=== PATIENT | male | born 1980 | race African-American/Black ===

== ENCOUNTER 2023-02-03 23:50 | Emergency (ER) | payer MEDICAID ==
[~2023-02-03] VITALS: Ht 182.9 cm; Wt 121.5 kg
[2023-02-03 23:59] VITALS: O2SAT 100
[2023-02-04] MEDS ORDERED: MORPHINE SULFATE 4 MG/ML CPJ (NOT FOR IM USE) IV STA (00:29)
[2023-02-04] MEDS ORDERED: TETANUS, DIPHTHERIA, PERTUSSIS VAC/PF 0.5ML (>10YR OLD) IM ONE (00:30)
[2023-02-04] MEDS ORDERED: CEFAZOLIN 1000MG PREMIX 50 ML IV ONE (00:30)
[2023-02-04] MEDS ORDERED: SODIUM CHLORIDE 0.9% 1,000 ML IV ONE (00:30)
[2023-02-04 01:34] LABS: BASOPHILS % 0.3 % (0.0-2.0); EOSINOPHILS % 0.8 % (0.0-5.0); HEMATOCRIT. 41.6 % (42.0-52.0); HEMOGLOBIN. 14.1 g/dL (14.0-18.0); LYMPHOCYTES % 31.5 % (20.0-50.0); MEAN CORPUSCULAR HEMOGLOBIN 30.5 pg (28.0-32.0); MEAN CORPUSCULAR VOLUME 89.8 fL (80.0-94.0); MEAN PLATELET VOLUME 7.5 fl (7.4-10.4); MONOCYTES % 8.3 % (2.0-8.0); NEUTROPHILS % 59.1 % (40.0-76.0); PLATELET 214 x1000/uL (130-400); RED BLOOD CELL COUNT 4.63 mill/uL (4.7-6.1); RED CELL DISTRIBUTION WIDTH 14.5 % (11.6-14.6)
[2023-02-04 01:42] LABS: CHLORIDE 111 mEq/L (98-107)
[2023-02-04] MEDS ORDERED: IOHEXOL-300 100 ML BOTTLE ONE (03:30)
[2023-02-04 04:00] VITALS: BP 136/85; PULSE 67; RESP 16; TEMP 98.2
[2023-02-04] MEDS ORDERED: IBUP-2029 MT (04:20)
== END 2023-02-04 04:30 | disposition home or self-care (01) ==
LOC: ER 23:50
DX: S31.119A Laceration without foreign body of abdominal wall, unspecified quadrant without penetration into peritoneal cavity, initial encounter (principal); S09.90XA Unspecified injury of head, initial encounter; H72.91 Unspecified perforation of tympanic membrane, right ear; X58.XXXA Exposure to other specified factors, initial encounter; Y93.89 Activity, other specified; Y92.89 Other specified places as the place of occurrence of the external cause; Y99.8 Other external cause status
CPT/HCPCS: 99285; 80053; 85025; 86900; 86901; 36415; 71045; 73070; 73090; 70450; 74177; 90715; 90471; 96365; 96375; Q9967; J0690; J2270; J7030; Z7610 ×2

== ENCOUNTER 2024-03-09 00:09 | Emergency (ER) | payer MEDICAID ==
[~2024-03-09] VITALS: Ht 185.4 cm; Wt 119.0 kg
[~2024-03-09 00:09] MED LIST: IBUP-2029 MT
[2024-03-09 00:29] VITALS: BP 141/104; TEMP 98.5; O2SAT 99
[2024-03-09 00:33] VITALS: PULSE 78
[2024-03-09] MEDS ORDERED: TETANUS, DIPHTHERIA, PERTUSSIS VAC/PF 0.5ML (>10YR OLD) IM ONE (01:30)
[2024-03-09 04:30] VITALS: RESP 20
== END 2024-03-09 01:00 | disposition left against medical advice (07) ==
LOC: ER 00:09
DX: S61.051A Open bite of right thumb without damage to nail, initial encounter (principal); Z53.21 Procedure and treatment not carried out due to patient leaving prior to being seen by health care provider; W54.0XXA Bitten by dog, initial encounter; Y93.89 Activity, other specified; Y92.89 Other specified places as the place of occurrence of the external cause; Y99.8 Other external cause status
CPT/HCPCS: 73130; 99281